=== PATIENT | female | born 1960 | race African-American/Black ===

== ENCOUNTER 2018-12-13 08:23 | Inpatient (IN) ==
--- NOTE | 2018-12-13 08:36 | PROVIDER DOCUMENTATION ---
HPI-Neurological Disorder - General Chief Complaint: Seizure Stated Complaint: SEIZURE Time Seen by Provider: 12/13/18 08:31 Source: EMS Unable to obtain history due to:: altered Allergies/Adverse Reactions: Patient Allergies Allergy/AdvReac Type Severity Reaction Status Date / Time Penicillins Allergy Unknown Verified 04/28/16 16:31 Home Medications: Home Medication List Medication Instructions Recorded Confirmed Last Taken Type Cyanocobalamin [Vitamin B-12] 1,000 mcg PO DAILY #60 tab 12/15/18 Unknown Rx Levetiracetam [Keppra] 1,000 mg PO BID #120 tab 12/15/18 Unknown Rx Levofloxacin 750 mg PO DAILY #5 tab 12/15/18 Unknown Rx - History of Present Illness-Neuro Nature of Presenting Problem: Presents to the EC via EMS who states that patient had a witnessed seizure by family. When EMS arrived patient was postictal but then had repeat seizure with them. Was given 2mg of IM versed and brought to the ED postictal. Family arrived later and stated that she has a history of a brain cyst but she has never had seizures before. Review of Systems - Adult - REVIEW OF SYSTEMS - ADULT ROS:: unobtainable per condition Constitutional: reports: other (seizure, other ROS unobtainable) Past History - Adult - PAST MEDICAL HISTORY-ADULT Review of Records: reports: Old Records Reviewed, Nursing Assessment Review Major Childhood Illnesses: reports: denies history Cardiovascular: reports: HTN Respiratory: reports: denies history Gastrointestinal: reports: denies history Obstetrical/Gynecological: reports: denies history Genitourinary: reports: denies history Musculoskeletal: reports: denies history Neurological: reports: denies history, other (brain cyst) Psychiatric: reports: depression Endocrine/Immune: reports: denies history Other Conditions: reports: denies history - PRIOR SURGERIES/PROCEDURES Surgical/Procedure History: reports: hysterectomy - IMMUNIZATION STATUS Childhood Immunizations: See Nurse Assessment Flu Vaccine: See Nurse Assessment - FAMILY HISTORY Family History: reviewed, not pertinent Physical Exam- Neurological - Physical Exam-Neuro Initial Vital Signs Reviewed: Yes General Appearance: other (snoring, nonverbal, no response to verbal stimuli) Eye Exam: bilateral eye: normal inspection, PERRL HENMT: normocephalic/atraumatic, moist mucous membranes Head Injury: no evidence of injury Neck: supple, normal inspection Respiratory: lungs clear. negative: respiratory distress Cardiovascular: normal peripheral pulses, tachycardia Abdominal Exam: normal bowel sounds, soft. negative: distended Extremity: normal inspection field merchandiser Exam: other (unable to complete due to mental status) Integumentary: warm/dry - Glascow Coma Scale Best Eye Response: (1) no response Best Verbal Response: (1) no verbal response Best Motor Response: (5) localizes to pain Progress - PLAN OF CARE/RESULTS Progress/Plan/Lab Results: Orders Category Date Time Status Admit - [facility] Routine AdmDCTranf 12/13/18 16:05 Active Activity - Bed Rest with BRP ORDERED Care 12/13/18 16:05 Active Neurological Check Q 4-HR ASSESS Care 12/13/18 16:05 Active Resuscitation Status Routine Care 12/13/18 14:38 Completed Vital Signs Order Q 4-HR ASSESS Care 12/13/18 16:05 Active Z-Document. for Tele Applied ORDERED Care 12/13/18 16:05 Completed MD [Physician/Provider Consults] Routine Cons 12/13/18 14:[address] HEAD/C-SPINE W/O CONTRAST [CT] Stat Exams 12/13/18 08:34 Completed BLOOD CULTURE [BLDCUL] Stat Lab 12/13/18 08:32 Results CBC WITH ELECTRONIC DIFF [HEME] Stat Lab 12/13/18 08:32 Completed COMPREHENSIVE METABOLIC PANEL [CHEM] Stat Lab 12/13/18 08:32 Completed LACTATE, PLASMA [CHEM] Stat Lab 12/13/18 08:[address] W/POSS RFLX CULT [URINALYSIS] Stat Lab 12/13/18 09:15 Completed URINE CULTURE [RM] Routine Lab 12/13/18 09:55 Com[address] DRUG SCREEN [address] Stat Lab 12/13/18 09:15 Completed 0.9% Sodium Chloride Inj [Ns] 1,000 ml Med 12/13/18 16:05 Discontinued IV 100 mls/hr Acetaminophen [Tylenol] Med 12/13/18 16:05 Discontinued 650 mg PO Q6H PRN PRN CefTRIAXONE [Rocephin] 1 gm Med 12/13/18 13:48 Discontinued 0.9% Sodium Chloride Inj [Ns] 50 ml IV NOW Levetiracetam [Keppra] 1,500 mg Med 12/13/18 10:44 Discontinued 0.9% Sodium Chloride Inj [Ns] 100 ml IV NOW Levetiracetam [Keppra] 500 mg Med 12/13/18 22:00 Discontinued 0.9% Sodium Chloride Inj [Ns] 100 ml IV Q12H Lorazepam [Ativan] Med 12/13/18 10:10 Discontinued 2 mg .ROUTE .STK-MED ONE Lorazepam [Ativan] Med 12/13/18 10:32 Discontinued 2 mg IV NOW ONE Ondansetron [Zofran] Med 12/13/18 16:05 Discontinued 4 mg IV Q4H PRN PRN Oxygen Device Routine Oth 12/13/18 16:05 Completed Telemetry [OM.EQ] Routine Oth 12/13/18 16:05 Active Transfer/Admit Order [TRANSFER] Routine Transfer 12/13/18 14:35 Completed Patient with new onset reported seziures. Has had a total of 3 today. When she was assessed she was postictal but maintaining her airway. Her LA was 19 but this is likely 2/[address] 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 She saw a neurologist in [place] 1 year ag but family cannot remember the name. Has never been on seizure medication. Called [facility] transfer center. Awaited page back for many hours. Spoke to Dr Lopes, neurologist public health nutritionist. Recommended OBS admission at out facility and continue with keppra 500mg PO BID and if she continues to have seizures they can accept her for transfer. Spoke to Dr Hammond, who wanted us to touch base with Dr Haddad. Spoke to Dr Haddad who accepted patient as consult. Will see in ED. Called Dr Hammond back to inform him of Dr Haddads acceptance. Further orders to be placed by hospitalist and neurology team. Result Diagrams: 12/15/18 05:50 12/15/18 05:50 - REASSESSMENT Reassessment #1 Time Reassessed: 10:05 Status: worsening Reassessment Comment: patient seizing again, given Ativan 2mg IV - CT/MRI 1 CT Study: Head Impression: See EMR Report ( CT HEAD/C-SPINE W/O CONTRAST - 12/13/2018 INDICATION: new onset seizure, reports cysts on brain COMPARISON: 04/27/2018 FINDINGS: Head CT: There is a stable cystic area or area of encephalomalacia at the left frontal lobe. This measures 3.8 x 3 cm. No intracranial mass or hemorrhage. No midline shift or herniation. There is a small area of forehead scalp soft tissue swelling which may indicate a scalp contusion. The skull is intact. There is some mild ethmoid sinusitis. Mastoids and middle ears are clear. Cervical spine: There is some sort of tube in the right nasal passage that ends in the oropharynx at the level of the tip of the epiglottis. The cervical spine is intact. No fracture or subluxation. There is moderately advanced disc degeneration at C5-C6. IMPRESSION: 1. Tiny forehead contusion. No intracranial hemorrhage. No change in the cystic area at the left frontal lobe. 2. Apparent nasal airway device. No acute injury to the cervical spine.) - CONSULTS/PCP/HOSPITALIST Notification #1 *Consult/PCP/Hospitalist*: [facility] Transfer Center Time Discussed: 10:00 Reason/Comments: repeat seziures Consult Disposition: other (busy with critical patient, will call us back.) Departure - Departure Date of Disposition Decision: 12/13/18 Time of Disposition Decision: 15:01 DIAGNOSIS: New onset seizure, Lactic acidosis, History of cyst of brain, UTI (urinary tract infection) Disposition: ADMITTED INPATIENT 09 Certified Medical Emergency: Emergent Condition: Fair - Critical Care Note This patient required my direct & personal management of CC.: Yes Total Time (mins): 75 Critical Care Statement: This patient required my direct personal management to treat or rule out processes, the absence of which, could potentiallly result in sudden, clinically significant life or limb threatening deterioration. Attestation - Physician/ DYLAN Attestation Patient care was provided by Advanced Practice Provider:: No The physician spent face to face time with patient:: Yes Advanced Practice Provider documentation review:: Supervising physician onsite and consulted in the evaluation and care of this patient. The physician did have a face to face encounter with the patient.
[2018-12-13 08:50] LABS: BASO# 0.05 X1000 (0.0-0.2); BASO% 0.5 % (0.0-0.8); HEMATOCRIT 34.8 % (37.0-47.0); HEMOGLOBIN 11.9 g/dL (12.0-16.0); IMM GRAN# 0.06 X1000 (0.0-0.04); IMM GRAN% 0.6 % (0.0-0.5); LYMPH# 5.82 X1000 (1.2-3.4); LYMPH% 59.5 % (20.5-51.1); MCH 41.2 PG (27-31); MCHC 34.2 g/dL (33-37); MCV 120.4 FL (81-99); MONO# 0.19 X1000 (0.11-0.59); MONO% 1.9 % (1.7-9.3); NEUT# 3.56 X1000 (1.4-6.5); NEUT% 36.5 % (42.2-75.2); PLT 159 X1000 (130-400); RBC 2.89 XMIL (4.2-5.4); RDW 13.2 % (11.5-14.5); WBC 9.78 X1000 (4.8-10.8)
[2018-12-13 09:00] LABS: ESTIMATED GFR > 60
[2018-12-13 09:11] LABS: AGAP 31; ALBUMIN 4.2 g/dL (3.5-5.0); ALKALINE PHOSPHATASE 72 U/L (32-104); BUN 13 mg/dL (8-22); CALCIUM 9.1 mg/dL (8.8-10.2); CHLORIDE 98 mmol/L (98-107); COSMO 288; CREATININE 0.9 mg/dL (0.5-0.9); GLUCOSE 188 mg/dL (70-104); GOT 17 U/L (10-30); GPT 11 U/L (10-36); POTASSIUM 3.6 mmol/L (3.5-5.1); SODIUM 142 mmol/L (136-145); TCO2 13 mmol/L (25-35); TOTAL PROTEIN 7.7 g/dL (6.3-8.3)
--- NOTE | 2018-12-13 09:48 | Diag Imaging Result Doc PS360 ---
CT HEAD/C-SPINE W/O CONTRAST - 12/13/2018 INDICATION: new onset seizure, reports cysts on brain COMPARISON: 04/27/2018 FINDINGS: Head CT: There is a stable cystic area or area of encephalomalacia at the left frontal lobe. This measures 3.8 x 3 cm. No intracranial mass or hemorrhage. No midline shift or herniation. There is a small area of forehead scalp soft tissue swelling which may indicate a scalp contusion. The skull is intact. There is some mild ethmoid sinusitis. Mastoids and middle ears are clear. Cervical spine: There is some sort of tube in the right nasal passage that ends in the oropharynx at the level of the tip of the epiglottis. The cervical spine is intact. No fracture or subluxation. There is moderately advanced disc degeneration at C5-C6. IMPRESSION: 1. Tiny forehead contusion. No intracranial hemorrhage. No change in the cystic area at the left frontal lobe. 2. Apparent nasal airway device. No acute injury to the cervical spine. This exam was performed using automated exposure control, adjustment of mA or kV according to patient size, and/or use of iterative reconstruction technique Electronically signed by Sebastien Mujica 12/13/2018 9:46 AM
[2018-12-13 09:51] LABS: BILIRUBIN URINE NEGATIVE (NEGATIVE); BLOOD URINE 4+ (NEGATIVE); CLARITY CLEAR (CLEAR); COLOR YELLOW; GLUCOSE URINE NEGATIVE (NEGATIVE); KETONE URINE TRACE mg/dL (NEGATIVE); LEUKOCYTES URINE TRACE (NEGATIVE); NITRITE URINE POSITIVE (NEGATIVE); PH URINE 6.5; PROTEIN URINE 2+(100 mg/dL) mg/dL (NEGATIVE); UR AMPHETAMINES QUAL NONE DETECTED (NONE DETECT); UR BARBITUATES QUAL NONE DETECTED (NONE DETECT); UR BENZODIAZEPIN QUAL NONE DETECTED (NONE DETECT); UR CANNABINOIDS QUAL NONE DETECTED (NONE DETECT); UR COCAINE QUAL NONE DETECTED (NONE DETECT); UR METHADONE QUAL NONE DETECTED (NONE DETECT); UR METHAMPHETAMINE QUAL NONE DETECTED (NONE DETECT); UR OPIATES QUAL NONE DETECTED (NONE DETECT); UR OXYCODONE QUAL NONE DETECTED (NONE DETECT); UR PCP QUAL NONE DETECTED (NONE DETECT); UR PROPOXYPHENE QUAL NONE DETECTED (NONE DETECT); UR TCA QUAL NONE DETECTED (NONE DETECT); UROBILINOGEN URINE NORMAL
[2018-12-13 09:55] LABS: URINE BACTERIA 4+ /HFP; URINE EPITHELIAL CELLS <10 /HPF (<10); URINE SOURCE CATH
[2018-12-13] MEDS ORDERED: ATIVAN ONE (10:10)
[2018-12-13] MEDS ORDERED: ATIVAN IV ONE (10:32)
[2018-12-13] MEDS ORDERED: KEPPRA 1,500 MG in NS 100 ML IV ONE (10:44)
[2018-12-13] MEDS ORDERED: ROCEPHIN 1 GM in NS 50 ML IV ONE (13:48)
[2018-12-13] MEDS ORDERED: NS 1,000 ML IV ONE (16:05)
[2018-12-13] MEDS ORDERED: TYLENOL PO PRN (16:05)
--- NOTE | 2018-12-13 16:56 | CONSULTATION ---
DATE OF CONSULTATION: 12/13/2018 NEUROLOGY CONSULTATION: She is in the [facility]. Mrs. Brewster is 58 years old and it sounds like she had new onset seizure beginning early this morning. Report sounds like three episodes of generalized rigidity and clonic activity without complete recovery of normal consciousness between episodes. She was reported up and walking around and opened door for her granddaughter this morning. Granddaughter witnessed what sounds like generalized seizure before or about 8:00 am. She has not been completely awake and alert since then, after 3:00 pm now. Ambulance was called and second seizure was witnessed by energy efficiency engineer. She was treated with Versed and brought to the emergency room. She had a third episode witnessed in the emergency room. She has not had a seizure recognized in approximately four and a half hours. She has been gradually more alert and more attentive in recent hours, but is not recovered to baseline alertness. Family reports no previous seizure, no previous episodes of altered awareness or unconsciousness. She fell and hit her head with initial episode. There is no history of other recent significant head injury. She has never had diagnosed stroke or other neurologic event. She has long-standing problem with headache and hypertension and headache seems to clearly correlate with poorly controlled blood pressure, often associated with her not taking her blood pressure medicine as directed. She has been to the emergency room on a few occasions with that problem. She has had several CT scans with reports available in this system showing left frontal cystic lesion with no evidence of increased intracranial pressure. These findings on scan today are unchanged compared to findings on CT scan done in April 2018. I cannot compare images from 2016 CT, but report sounds like there has not been a change since that scan 3 years ago. Family reports she had MRI scan done in [place] within the last year or so and they report no intervention was recommended. Family denies illicit drug use, ethanol use, drug intoxication, misuse of prescription medicines. However, they report she supervises medicines herself and there is no way to document how she takes her medicine. Workup here includes CT findings as above. Lab show anemia. Lactate 19.0, glucose 188, nothing else remarkable on chemistry profile. Urine drug screen was all negative. There is evidence of UTI. She has been afebrile here. Heart rate was recorded 130s. Initial blood pressure was recorded 107/65. Old records show she presented to the emergency room in 2016 with psychiatry complaints and blood pressure 201/104. She presented to the emergency room in 2015 with headache and initial systolic blood pressure 180-200s, discharged after systolic blood pressure 150s. PHYSICAL EXAMINATION: On exam now, Ms. Brewster is asleep, easily waked, mostly alert and attentive during my time at the bedside. She was a little bit slow to respond, but did respond appropriately. She held up fingers correctly. She did well on [id number] testing. Tone seems symmetric in the limbs. She has good power in arms and legs symmetrically. I did not test her gait. She was briefly attentive to sensory testing and there was no focal finding on gross sensory testing over the limbs. Plantar response is silent bilaterally. She has full visual bain, tested grossly by confrontational finger counting. Extraocular movements are full. Facial motility is symmetric. Tongue is midline. Head is unremarkable. Neck is supple without meningismus. There is evidence of tongue biting. IMPRESSION: 1. History sounds like new onset seizurethree seizures today without complete recovery in between, consistent with diagnosis of status epilepticus. This appears to be generalized without any focal features. Reason for new onset generalized seizure would often be toxic or metabolic disturbance but I do not find definite history to support that diagnosis. Withdrawal state might explain generalized seizures but there is reported no history of ethanol withdrawal, benzodiazepine use, other substance use. She might have new cerebral infarction, presenting with new seizure. Initial negative CT is reassuring regarding other structural brain lesion, but does not rule out ischemic infarction. We will need followup imaging, as planned. 2. Another possibility would be that she has a long-standing seizure disorder that has not been recognized by family. That seems less likely. 3. Imaging evidence of large left frontal cystic lesion. This appears unchanged on serial scans. It would not be likely that static structural lesion would begin causing seizures now. As discussed, we will plan brain MRI with contrast, EEG, and continue levetiracetam with 1000 mg q 12 hours and follow clinically. Thanks for asking Neurology to see Ms. Brewster. cc: MD CHAZ Portillo III
--- NOTE | 2018-12-13 18:01 | HISTORY AND PHYSICAL ---
PRIMARY CARE PHYSICIAN: None. CHIEF COMPLAINT: Seizures. HISTORY OF PRESENTING ILLNESS: This is a 58-year-old, female, who was last seen normal around 7:45 this morning when she let her granddaughter in the house, sat down in a chair and then fell out of the chair and began having seizure-like activity. They called 911 and EMS arrived. While loading her on the stretcher, she had another seizure. En route, they gave her 2 mg of Versed IM. When she arrived to the emergency room around 9 a.m. this morning, she had a 3rd seizure witnessed by the ER staff and was given IV Ativan. The patient is noted to be mildly postictal at this time and is able to answer some simple yes or no questions. There is a family member at bedside who is also able to answer questions and reviewed her medical record. She has a history of headaches, that is secondary to hypertension and has not been compliant with her blood pressure medication and has had several visits to the ER secondary to having a headache related to high blood pressure in the past. She has had a known brain cyst that according to the head CT today, is no change from the comparison on 05/27/2018. She is noted to have a contusion to her forehead secondary to the fall. The impression shows a tiny forehead contusion. No intracranial hemorrhage and no change in the cystic area at the left frontal lobe. No acute injury to the cervical spine. So, she is being admitted to the intensive care unit for further evaluation and treatment. PAST MEDICAL HISTORY: Brain cyst and headaches. PAST SURGICAL HISTORY: None. FAMILY HISTORY: Reviewed and noncontributory. SOCIAL HISTORY: She does not smoke, drink alcohol or use illicit drugs. She currently lives with a family member. ALLERGIES: Penicillin. HOME MEDICATIONS: We will need to obtain a current list and restart as appropriate. We will place an order for nursing to update and confirm home medications. LABORATORY DATA: Showed a white blood cell count of 9.78, hemoglobin of 11.9, hematocrit 34.8, platelets 159. Sodium 142, potassium 3.6, chloride 98, CO2 13, BUN of 13, creatinine 0.9, glucose 188. Her plasma lactate was 19. Urinalysis showed positive nitrites, a trace of white blood cells, 4+ bacteria. Urine drug screen showed none detected. CT of the head showed a tiny forehead contusion. No intracranial hemorrhage. No change in the cystic area at the left frontal lobe and an apparent nasal airway device and no acute injury to the cervical spine. REVIEW OF SYSTEMS: Unable to obtain from patient at this time. PHYSICAL EXAMINATION: VITAL SIGNS: On arrival she had a temperature of 97.5, her pulse was 133, respirations 21, blood pressure 107/65, saturating 97% on nasal cannula at 2 L via nasal cannula. GENERAL: This is a 58-year-old, female, lying in the bed. Has a muffled low tone and able to answer some yes and no questions at this time, but appears postictal. HEENT: Patient is noted to have some purplish discoloration to the middle of her forehead from where she fell out of her chair this morning and had her seizure. She also bit her tongue and has a little swelling of her bottom lip. ENT inspection is normal. Eyes: Pupils appear equal, round, reactive to light. Extraocular movements are intact. NECK: Normal inspection, normal range of motion. LUNGS: Clear to auscultation bilaterally with equal lung expansion and chest wall movement. HEART: With regular rate and rhythm. No murmurs, rubs, or gallops. ABDOMEN: Soft, nontender, nondistended. Bowel sounds are present x4 quadrants. MUSCULOSKELETAL: Unable to assess strength at this time due to being postictal. NEUROLOGICAL: Unable to assess complete neurological exam at this time. ASSESSMENT: 1. Fall. 2. New onset seizures. 3. Urinary tract infection. 4. Hypertension, uncontrolled. 5. Medical noncompliance. PLAN: She is being admitted to the intensive care unit. We will consult Neurology and will give her 1000 mg of Keppra IV tonight. Then, we will change her over to 1000 mg p.o. b.i.d., give her normal saline at 100 mL an hour, Tylenol 650 p.o. q.6 hours p.r.n., Zofran 4 mg IV q.4 hours p.r.n., Rocephin 1 gram IV q.24. She received the first dose in the emergency room today. She will be on a clear liquid diet. We will check an MRI with and without contrast in the a.m. and EEG in the a.m. neuro checks q.4 hours for 24 hours and again we need to have nursing to update and confirm home medications. Then, will review and restart as appropriate. We will recheck a CBC, BMP in the a.m. and further orders after being seen by attending and investment consultant. Dictated by ADRY Fish for Ochoa Hammond MD cc: ADRY Fish MD Pt examined and seen with adry, has seizures in the setting of cystic lesion on her brain which has not changed in several years, neurology is involved and recommending keppra per their dosing; amd mri for stroke workup, pt is lethargic but has a nonfocal exam. KIRBY WARE
[2018-12-13] MEDS ORDERED: KEPPRA 1,000 MG/NS 1,000 MG/100 ML IVPB IV ONE (21:00)
[2018-12-13] MEDS: ZOFRAN IV PRN (21:03)
[2018-12-13] MEDS ORDERED: KEPPRA 500 MG in NS 100 ML IV SCH (22:00)
[2018-12-14 05:16] LABS: BASO# 0.01 X1000 (0.0-0.2); BASO% 0.3 % (0.0-0.8); EOS# 0.01 X1000 (0.0-0.7); EOS% 0.3 % (0.0-10.0); HEMATOCRIT 27.6 % (37.0-47.0); HEMOGLOBIN 9.6 g/dL (12.0-16.0); LYMPH# 1.14 X1000 (1.2-3.4); LYMPH% 34.7 % (20.5-51.1); MCH 40.2 PG (27-31); MCHC 34.8 g/dL (33-37); MCV 115.5 FL (81-99); MONO# 0.05 X1000 (0.11-0.59); MONO% 1.5 % (1.7-9.3); MPV 9.9 FL (7.4-10.4); NEUT# 2.08 X1000 (1.4-6.5); NEUT% 63.2 % (42.2-75.2); PLT 89 X1000 (130-400); RBC 2.39 XMIL (4.2-5.4); RDW 12.7 % (11.5-14.5); WBC 3.29 X1000 (4.8-10.8)
[2018-12-14 05:32] LABS: AGAP 12; BUN 11 mg/dL (8-22); CALCIUM 8.7 mg/dL (8.8-10.2); CHLORIDE 104 mmol/L (98-107); COSMO 278; CREATININE 0.5 mg/dL (0.5-0.9); ESTIMATED GFR > 60; GLUCOSE 85 mg/dL (70-104); POTASSIUM 4.1 mmol/L (3.5-5.1); SODIUM 140 mmol/L (136-145); TCO2 25 mmol/L (25-35)
[2018-12-14 07:35] LABS: BASO# 0.01 X1000 (0.0-0.2); BASO% 0.3 % (0.0-0.8); EOS# 0.02 X1000 (0.0-0.7); EOS% 0.6 % (0.0-10.0); HEMATOCRIT 27.2 % (37.0-47.0); HEMOGLOBIN 9.5 g/dL (12.0-16.0); IMM GRAN# 0.02 X1000 (0.0-0.04); IMM GRAN% 0.6 % (0.0-0.5); LYMPH# 1.07 X1000 (1.2-3.4); LYMPH% 32.5 % (20.5-51.1); MCH 40.6 PG (27-31); MCHC 34.9 g/dL (33-37); MCV 116.2 FL (81-99); MONO# 0.06 X1000 (0.11-0.59); MONO% 1.8 % (1.7-9.3); MPV 9.6 FL (7.4-10.4); NEUT# 2.11 X1000 (1.4-6.5); NEUT% 64.2 % (42.2-75.2); PLT 87 X1000 (130-400); RBC 2.34 XMIL (4.2-5.4); RDW 12.8 % (11.5-14.5); WBC 3.29 X1000 (4.8-10.8)
[2018-12-14 07:44] LABS: PHOSPHORUS 3.4 mg/dL (2.7-4.5)
[2018-12-14 07:48] LABS: AGAP 13; ALBUMIN 3.1 g/dL (3.5-5.0); ALKALINE PHOSPHATASE 56 U/L (32-104); BUN 11 mg/dL (8-22); CHLORIDE 105 mmol/L (98-107); COSMO 276; CREATININE 0.5 mg/dL (0.5-0.9); ESTIMATED GFR > 60; GLUCOSE 75 mg/dL (70-104); GOT 31 U/L (10-30); GPT 10 U/L (10-36); POTASSIUM 4.1 mmol/L (3.5-5.1); SODIUM 139 mmol/L (136-145); TCO2 21 mmol/L (25-35); TOTAL PROTEIN 6.9 g/dL (6.3-8.3)
--- NOTE | 2018-12-14 07:58 | PROGRESS NOTE ---
DATE: 12/14/2018 SUBJECTIVE: This patient is resting comfortably in bed. She is complaining of mild headache. She is oriented x3 but her answers are slow, she does not remember what happened at home. Today an MRI is pending. Neurology department following this patient. I do not see any focal lesions. OBJECTIVE: Vital Signs: Temperature 97.7 degrees, pulse 84, respiratory rate 14, blood pressure 104/68, oxygen saturation 100% on room air. HEENT: Head normocephalic, no trauma. PERRLA. Neck: Supple. No JVD. No masses. Central trachea. Chest: Clear to auscultation. No wheezing. No rales. Abdomen: Soft, nontender, nondistended. No hepatosplenomegaly. Extremities: No edema, no clubbing, no cyanosis. Neurological: The patient is alert, she is oriented x3. Her answers are slow but appropriate. No focal deficits. LABORATORY DATA: WBC 3.2, hemoglobin 9.6, hematocrit 27.6, platelets 89,000. Sodium 140, potassium 4.1, chloride 104, bicarbonate 25, BUN 11, creatinine 0.5, glucose 85, calcium 8.7. ASSESSMENT AND PLAN: 1. New onset seizures. Apparently no past medical history of seizure disorders before. We have a CT scan that showed a tiny forehead contusion, no change in the cystic area at the left frontal lobe and no acute injury to the cervical spine. Pending MRI of the head today. Neurology department following this patient. For now, we will continue with Keppra twice a day. 2. Urinary tract infection. This patient has been placed on Rocephin, urine culture and blood cultures so far negative. We will continue with the same management. 3. Hypertension, controlled. At this moment, she is not receiving any kind of blood pressure medication and the blood pressure has been mostly in the 100s. For now, we will continue with same management. It looks like at home she probably is taking metoprolol and lisinopril/hydrochlorothiazide, but like I said, for now, I will hold. 4. Medical noncompliance. Aware. cc: Williams Landry MD
[2018-12-14 08:15] LABS: CK INDEX 1.1 (0.0-2.5); CK-MB 7.24 ng/mL (0.0-5.0)
[2018-12-14] MEDS: NS 1,000 ML IV SCH ×2 (08:32→21:29)
[2018-12-14] MEDS: KEPPRA PO SCH ×2 (08:32→21:29)
[2018-12-14] MEDS: ZOFRAN IV PRN (09:04)
[2018-12-14] MEDS ORDERED: SODIUM CHLORIDE 0.9% INJ ONE (09:49)
[2018-12-14] MEDS ORDERED: PHENERGAN IV ONE (09:49)
--- NOTE | 2018-12-14 10:03 | Diag Imaging Result Doc PS360 ---
EXAM: MRI BRAIN W/WO CONTRAST - 12/14/2018 HISTORY: seizure TECHNIQUE: MRI brain without and with contrast. Images are obtained prior to and following gadolinium administration. COMPARISON: 12/13/[address] head FINDINGS: There is a 3.4 x 3.5 x 2.6 cm cystic lesion at the superior left frontal lobe. This has mildly lobulated configuration and well demarcated margins. There is no associated abnormal enhancement identified following gadolinium administration. There is no associated abnormal enhancement identified. There is no mass effect on the ventricular system or midline shift identified. There are mild chronic microvascular ischemic changes. The diffusion weighted images show no areas of restricted diffusion (no evidence of acute infarct. There is no hemorrhage or abnormal enhancement identified. IMPRESSION: 3.4 x 3.5 x 2.6 cm cystic lesion at superior left frontal lobe. No associated abnormal enhancement. No associated surrounding edema. Mild chronic microvascular ischemic changes. Electronically signed by Gopal Rick 12/14/2018 10:01 AM
[2018-12-14] MEDS: ROCEPHIN 1 GM in NS 50 ML IV SCH (14:20)
--- NOTE | 2018-12-15 03:48 | PROGRESS NOTE ---
DATE: 12/14/2018 LOCATION: [facility] ICU bed #2. Ms. Brewster has done well. She has not had any further seizure activity. She has slowly recovered alertness and is almost back to baseline personality according to family. She told me today that she does not recall the events of yesterday. She remembers greeting her granddaughter yesterday morning and then she next realized she was in the hospital. She is not certain that she remembers her time in the emergency department, but she does definitely remember being in the ICU later. She has not had any further memory gaps. She does not have much headache now. Her tongue is sore. She reports no prior similar episodes. She has not had previous memory gap, unexplained tongue biting, other neurologic event. We discussed the CT and MRI findings. 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 Her EEG this afternoon shows low amplitude, generalized slowing with no definite tendency to seizure. She has been receiving levetiracetam 1000 mg q.12 hours, switched to p.o. dosing and tolerating that. We discussed the possible explanations for new onset seizure in this setting in her age group. We do not have evidence of recent cerebral infarction, other structural lesion to account for seizure, significant toxic or metabolic explanation, or history to suggest withdrawal. There is not history of focal feature. In light of her stable course, spontaneous recovery, nonfocal presentation, negative workup, I do not think we have to do anything further from a neurologic standpoint. I have offered to follow her as an outpatient. We will plan to repeat her EEG at some point in the near future and hope to see resolution of the generalized slowing noted on current EEG. Further plans might include prolonged EEG, ambulatory EEG, video/EEG monitoring, referral for other opinions. She will continue levetiracetam 1000 mg b.i.d. We discussed potential levetiracetam adverse effects including drowsiness and personality change. Family will report if they notice any problems. We discussed availability of alternate AEDs, if needed. We discussed the [place] Law as it pertains to driving and she and family understand her responsibility. She will notify my office if she has another seizure or other episode of altered awareness, or if she has problems with levetiracetam. Otherwise, I will see her in the office in a month or so. Thanks for asking Neurology to see Ms. Brewster. cc: MD CHAZ Portillo III
[2018-12-15 06:21] LABS: BASO# 0.02 X1000 (0.0-0.2); BASO% 0.7 % (0.0-0.8); EOS# 0.04 X1000 (0.0-0.7); EOS% 1.4 % (0.0-10.0); HEMATOCRIT 26.9 % (37.0-47.0); HEMOGLOBIN 9.3 g/dL (12.0-16.0); IMM GRAN# 0.02 X1000 (0.0-0.04); IMM GRAN% 0.7 % (0.0-0.5); LYMPH# 1.39 X1000 (1.2-3.4); LYMPH% 48.4 % (20.5-51.1); MCH 39.7 PG (27-31); MCHC 34.6 g/dL (33-37); MONO# 0.06 X1000 (0.11-0.59); MONO% 2.1 % (1.7-9.3); MPV 9.6 FL (7.4-10.4); NEUT# 1.34 X1000 (1.4-6.5); NEUT% 46.7 % (42.2-75.2); PLT 89 X1000 (130-400); RBC 2.34 XMIL (4.2-5.4); RDW 12.6 % (11.5-14.5); WBC 2.87 X1000 (4.8-10.8)
[2018-12-15 06:22] LABS: AGAP 10; ALBUMIN 3.1 g/dL (3.5-5.0); ALKALINE PHOSPHATASE 52 U/L (32-104); BUN 10 mg/dL (8-22); CALCIUM 8.5 mg/dL (8.8-10.2); CHLORIDE 107 mmol/L (98-107); COSMO 283; CREATININE 0.6 mg/dL (0.5-0.9); ESTIMATED GFR > 60; GLUCOSE 83 mg/dL (70-104); GOT 25 U/L (10-30); GPT 11 U/L (10-36); IRON SATURATION 32 %; POTASSIUM 3.8 mmol/L (3.5-5.1); SODIUM 143 mmol/L (136-145); TCO2 27 mmol/L (25-35); TIBC 157 ug/dL; TOTAL IRON 51 ug/dL (49-151); TOTAL PROTEIN 6.4 g/dL (6.3-8.3); UNBOUND IRON 106 ug/dL (112-346)
[2018-12-15 06:38] LABS: ANISOCYTOSIS 3+; LYMPHS 64 % (21-51); SEGS 36 % (42-75)
[2018-12-15 06:51] LABS: CK INDEX 1.7 (0.0-2.5); CK-MB 4.54 ng/mL (0.0-5.0)
--- NOTE | 2018-12-15 08:27 | PROGRESS NOTE ---
DATE: 12/15/2018 SUBJECTIVE: The patient resting comfortably in bed. Again we tried to sit this patient up, she felt dizzy. Her blood pressure has been mostly in the 100s, even though she has been taking blood pressure medication at home. She does have a urinary tract infection but as per the patient, she does not have any symptoms, but when she came in, she was disoriented due to a seizure disorder. So she has been placed on ceftriaxone, pending sensitivity at this point. Hopefully, this patient will be discharged either today in the afternoon or tomorrow. I will ask physical therapy to evaluate this patient today and walk with her. Like I said she feels dizzy when she sits up. Dr. Haddad evaluated this patient and he has recommended to continue with the same management, he will re-evaluate this patient as an outpatient in 1 month. OBJECTIVE: Vital Signs: Temperature 98.1 degrees, pulse 57, respiratory rate 16, blood pressure 91/66, at this moment on the monitor 119/82, oxygen saturation 100% on room air. HEENT: Head normocephalic, no trauma, PERRLA. Neck: Supple. No JVD. No masses. Central trachea. Chest: Clear to auscultation. No wheezing. No rales. Abdomen: Soft, nontender, nondistended. No hepatosplenomegaly. Extremities: No edema, no clubbing, no cyanosis. Neurological: The patient is alert and oriented x3. No focal deficits. LABORATORY: WBC 2.8, hemoglobin 9.3, hematocrit 26.9, platelets 89,000. Sodium 143, potassium 3.8, chloride 107, bicarbonate 27, BUN 10, creatinine 0.6. Glucose 83. Calcium 8.5. CK 272. Albumin 3.1. B12 150. ASSESSMENT AND PLAN: 1. New onset seizures, apparently no past medical history of seizures before. CT scan showed a tiny forehead contusion, no intracranial hemorrhage. MRI of the head showed a cystic lesion at the superior left frontal lobe. No associated abnormal enhancement. No associated surrounding edema. It looks chronic. Dr. Haddad following this patient and he recommended to continue with Keppra twice a day and follow up with him in a month. 2. Urinary tract infection. I just received the urine culture sensitivity. This patient has an E. coli urinary tract infection, ESBL negative. Upon discharge, I will switch the treatment to an oral medication. 3. Hypertension. Even though this patient has been receiving fluids and she has not been taking her blood pressure medications, the blood pressure has been controlled, basically between the 100s and 110. At this moment, the blood pressure is 119/71, vital signs are stable. I will not continue with blood pressure medication for now. It looks like she was on amlodipine and hydrochlorothiazide at home, which I will not continue. 4. Medical noncompliance, aware. Overall, this patient is doing better. I will ask physical therapy to evaluate this patient and walk with her, she feels dizzy when she sits up. We have a urine culture that showed E. coli. Hopefully I will discharge this patient later this afternoon if she is able to tolerate p.o. and walk without any kind of problem. cc: Williams Landry MD
[2018-12-15] MEDS ORDERED: CYANOCOBALAMIN IM SCH (09:00)
[2018-12-15] MEDS: KEPPRA PO SCH (09:08)
[2018-12-15 11:40] LABS: FERRITIN 276 ng/mL (13-150)
[2018-12-15 14:23] VITALS: BP 118/78
[2018-12-15] MEDS: ROCEPHIN 1 GM in NS 50 ML IV SCH (14:59)
--- NOTE | 2018-12-15 15:43 | EEG REPORT ---
DATE: 12/14/2018 COMMENT: This is a digitally recorded EEG done portably in the ICU on a 58-year-old patient with apparent recent onset seizure, presenting in status epilepticus approximately 24 hours prior to EEG. FINDINGS: Low amplitude polymorphic and rhythmic theta are present symmetrically across the hemispheres. There is very poorly sustained 9 Hz posterior rhythm intermittently with uncertain reactivity to eye opening. Beta rhythm is present centrally. Most of the record is recorded in drowsing and sleep with symmetric features. Photic stimulation did not alter the record. Hyperventilation was not done. No definite epileptiform discharge was identified. INTERPRETATION: Abnormal EEG because of mild generalized slowing. CORRELATION: This is indicative of a diffuse encephalopathy and is nonspecific. The absence of epileptiform discharges on a single EEG does not exclude a clinical diagnosis of seizures. cc: MD Ayla Portillo III, CRNP
--- NOTE | 2018-12-15 18:57 | DISCHARGE SUMMARY ---
ADMISSION DATE: 12/13/2018 DISCHARGE DATE: 12/15/2018 PRIMARY CARE PHYSICIAN: None. ADMISSION DIAGNOSIS: 1. Fall. 2. New onset seizures. 3. Urinary tract infection. 4. Hypertension uncontrolled. 5. Medical noncompliance. DISCHARGE DIAGNOSIS: 1. New onset seizures, stable. 2. Escherichia coli urinary tract infection that is extended spectrum beta-lactamase negative. 3. Hypertension. 4. Medical noncompliance. SUMMARY OF FINDINGS: This is a 58-year-old female who apparently was at home let her granddaughter in the house, sat down in a chair and then fell out began having seizure-like activity, they called 911. When EMS arrived they were loading her on the stretcher and she had another seizure en route they gave her 2 mg of Versed IM and when she arrived to the emergency room around 9 a.m. she had her 3rd seizure witnessed by the ER staff and was given IV Ativan. She was postictal mildly at the time of admission but was able to answer some simple yes or no questions, there was family at the bedside who could also answer questions. She has a history of headaches that is secondary to her hypertension has not been compliant with her blood pressure medicines and has had several ER visits secondary to headaches related to high blood pressure in the past. Her head CT showed no change from prior comparison on 05/27/2018, she was noted to have a contusion to her forehead secondary to the fall. She was admitted initially to the intensive care unit. We consulted Neurology. They placed her on Keppra IV initially and then changed over to p.o., we did neuro checks q.4 hours for 24 hours, placed her on Rocephin 1 gram IV q.24, we checked a brain MRI on 12/14/2017 that did show her cystic lesion that was known but no associated abnormal enhancement, no associated surrounding edema and some mild chronic microvascular ischemic changes. Again her urine culture showed an E coli UTI. We did an EEG today on 12/15 had interpretation of an abnormal EEG because of mild generalized slowing but it is felt today that she can safely be discharged home. DISCHARGE MEDICATIONS: Keppra 1000 mg p.o. b.i.d. #120 with 1 refill, vitamin B12 1000 mcg p.o. daily and Levaquin 750 mg p.o. daily #5 with no refills. Her blood pressure medication has been stopped because her pressures been stable for greater than 48 hours. FOLLOWUP: She is to follow up with her primary care physician. She is also to follow up with Dr. Haddad in a month and call for an appointment and would like for her to follow up with Hematology with Dr. Upton and call for an appointment to evaluate for anemia. She verbalized understanding of her discharge instructions. TIME SPENT: 33 minutes . Dictated by ADRY Fish for Williams Landry MD cc: ADRY Fish MD
== END 2018-12-15 17:51 | disposition home or self-care (01) | DRG 100 ==
LOC: P.ED 08:23 → P.ICU 15:14 → SUATTDRO 15:14 → P.MEDSURG 12-15 10:22
PROVIDERS: ATTEND Internal Medicine
CPT/HCPCS: 36415; 70450; 70553; 72125; 80048; 80053; 80104; 80301; 80305; 81001; 82550; 82553; 82607; 82728; 82746; 83540; 83550; 83605; 83735; 84100; 85025; 87040; 87077; 87088; 87186; 95816; 96365; 96367; 96375; 99285; A9270; A9579; G0431; G0434; G0477; J0696; J1953; J2060; J2405; J2550; J3420; J7030